=== PATIENT | male | born 1970 | race Caucasian/White ===

== ENCOUNTER 2016-11-03 07:15 | Emergency (ER) | payer OTHER ==
[~2016-11-03] VITALS: Ht 182.9 cm; Wt 90.7 kg
[~2016-11-03 07:15] MED LIST: NORCO 7.5-3251 EACH PO; ZOFRAN 4 MG ORAL4 MG PO; ZOLOFT 50 MG TA50 M1 PO
[2016-11-03] MEDS ORDERED: XANAX 0.5 MG0.5 MG PO (07:24)
[2016-11-03 07:44] LABS: HEMATOCRIT 42.4 % (42.0-52.0); HEMOGLOBIN 14.5 gm/dL (14.0-18.0); MCH 29.5 pg (26.0-34.0); MCHC 34.3 g/dL (28.0-37.0); RBC 4.93 mil/uL (4.50-6.00); RDW 12.8 % (10.5-14.5); WBC 8.2 thou/uL (4.0-11.0)
[2016-11-03 07:50] LABS: CREATININE 1.1 mg/dL (0.7-1.3); POTASSIUM 3.7 mmol/L (3.5-5.1)
[2016-11-03 07:55] LABS: ALBUMIN 4.2 g/dL (3.4-5.0); TOTAL BILIRUBIN 1.5 mg/dL (<0.1-1.0); TOTAL PROTEIN 7.4 g/dL (6.4-8.2)
[2016-11-03] MEDS ORDERED: SERTRALINE HCL50 MG PO ×2 (08:23→08:33)
== END 2016-11-03 08:52 | disposition home or self-care (01) ==
LOC: ER 07:15
PROVIDERS: Emergency Medicine
DX: G47.09 Other insomnia (principal); F41.9 Anxiety disorder, unspecified; Z98.890 Other specified postprocedural states; F10.99 Alcohol use, unspecified with unspecified alcohol-induced disorder